=== PATIENT | female | born 1970 | race Caucasian/White ===

== ENCOUNTER 2020-10-27 22:06 | Emergency (ER) | payer MEDICAID ==
[~2020-10-27] VITALS: Ht 170.2 cm; Wt 86.9 kg
--- NOTE | 2020-10-27 22:29 | NUR ---
seen by , code stroke called out
[2020-10-27] MEDS ORDERED: CLONIDINE HCL 0.2 MG TABLET PO ONE (22:30)
--- NOTE | 2020-10-27 22:30 | NUR ---
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
--- NOTE | 2020-10-27 22:33 | NUR ---
taken to ct scan of the head accompanied by nurse and daughter
[2020-10-27 22:39] LABS: BASOPHILS # (AUTO) 0.1 K/uL (0.0-8.0); BASOPHILS % (AUTO) 1.2 % (0.0-2.0); EOSINOPHILS # (AUTO) 0.1 K/uL (0.0-0.7); EOSINOPHILS % (AUTO) 1.2 % (0.0-7.0); HEMATOCRIT 40.1 % (31.2-41.9); HEMOGLOBIN 13.5 g/dL (10.9-14.3); LYMPHOCYTES # (AUTO) 2.5 K/uL (20.0-40.0); LYMPHOCYTES % (AUTO) 40.8 % (20.5-51.5); MEAN CORPUSCULAR HEMOGLOBIN 29.2 uug (24.7-32.8); MEAN CORPUSCULAR HGB CONC 34 g/dL (32.3-35.6); MONOCYTES # (AUTO) 0.6 K/uL (2.0-10.0); MONOCYTES % (AUTO) 9.3 % (0.0-11.0); NEUTROPHILS # (AUTO) 2.9 K/uL (1.8-8.9); NEUTROPHILS % (AUTO) 47.5 % (38.5-71.5); PLATELET COUNT (AUTO) 250 K/uL (179-408); RED BLOOD CELL COUNT(AUTO) 4.61 MIL/uL (3.63-4.92)
--- NOTE | 2020-10-27 22:45 | NUR ---
back from ct scan , accompanied by nurse and daughter , kayy elizabeth athis time , clonidine 0.2 mg , orally given
[2020-10-27 22:47] LABS: CREATININE 0.7 mg/dL (0.6-1.3); POTASSIUM 3.9 mmol/L (3.5-5.1)
[2020-10-27] MEDS ORDERED: CLONIDINE HCL 0.2 MG TABLET ONE (22:52)
--- NOTE | 2020-10-27 23:00 | NUR ---
dr mandujano neurologist seen and talked to the patient , nurse ans daughter at bedside
--- NOTE | 2020-10-27 23:18 | NUR ---
dr nazia conleylogist talked to dr hi regarding plans and traetment
--- NOTE | 2020-10-27 23:19 | NUR ---
dr hi at bedside regarding medications and plans
[2020-10-27] MEDS ORDERED: ONDANSETRON 4 MG/2 ML VIAL ONE (23:27)
[2020-10-27] MEDS ORDERED: HYDROMORPHONE 1 MG/1 ML DISP.SYRIN ONE (23:29)
[2020-10-27] MEDS ORDERED: ONDANSETRON 4 MG/2 ML VIAL IV ONE (23:30)
[2020-10-27] MEDS ORDERED: HYDROMORPHONE 1 MG/1 ML DISP.SYRIN IV ONE (23:30)
[2020-10-27] MEDS ORDERED: LOSA25TA27 PO (23:34)
[2020-10-27] MEDS ORDERED: LABETALOL HCL 100 MG/20 ML VIAL ONE (23:42)
[2020-10-27] MEDS ORDERED: LABETALOL HCL 100 MG/20 ML VIAL IV ONE (23:45)
--- NOTE | 2020-10-28 | NUR ---
PATIENT DEPARTED WITH DAUGHTER WHO IS GOING TO DRIVE HOME , PATIENT HAS A STEADY GAIT , BP IS MORE STABLE AFTER LABETALOL, BP 143/ 99 . HR 69 , DENIES DISTRESS
[2020-10-28 00:09] VITALS: BP 143/98
== END 2020-10-28 00:01 | disposition home or self-care (01) ==
LOC: ER 22:07
DX: I10 Essential (primary) hypertension (principal); R51.9 Headache, unspecified; Z20.822 Contact with and (suspected) exposure to COVID-19; R94.31 Abnormal electrocardiogram [ECG] [EKG]
CPT/HCPCS: 36415; 70450; 71045; 80048; 80061; 82962; 84484; 85025; 85730; 87426; 93005; 96374; 96375; 99285; J1170; J2405; J3490; U0003; 70030-TC; A4663

== ENCOUNTER 2022-06-03 08:15 | Emergency (ER) | payer MEDICAID ==
[~2022-06-03] VITALS: Ht 162.6 cm; Wt 86.2 kg
[~2022-06-03 08:15] MED LIST: LOSA25TA27 PO
[2022-06-03] MEDS ORDERED: KETOROLAC TROMETHAMINE 15 MG INJ IVP ONE (08:45)
[2022-06-03 08:46] LABS: HEMATOCRIT 37.1 % (31.2-41.9); MEAN CORPUSCULAR HEMOGLOBIN 30.5 uug (24.7-32.8); MEAN CORPUSCULAR VOLUME 86.8 fL (75.5-95.3); PLATELET COUNT (AUTO) 212 K/uL (179-408)
[2022-06-03 08:57] LABS: CREATININE 0.9 mg/dL (0.6-1.3); POTASSIUM 3.6 mmol/L (3.5-5.1)
[2022-06-03 09:03] LABS: BILIRUBIN,DIRECT 0.1 mg/dL (0.0-0.2); BILIRUBIN,TOTAL 0.2 mg/dL (0.2-1.0); TOTAL PROTEIN, SERUM 7.3 g/dL (6.4-8.2)
[2022-06-03] MEDS ORDERED: KETOROLAC TROMETHAMINE 15 MG INJ ONE (09:45)
[2022-06-03 09:50] LABS: *BILIRUBIN,URIN NEGATIVE (NEGATIVE); *CLARITY,URINE CLEAR (CLEAR); *COLOR,URINE YELLOW (YELLOW); *KETONES,URINE NEGATIVE (NEGATIVE); *UROBILINOGEN,URINE 0.2 E.U./dl (NORMAL); LEUKOCYTE ESTERASE ,URINE NEGATIVE (NEGATIVE); NITRITE, URINE NEGATIVE (NEGATIVE); UGLUCOSE NEGATIVE (NEGATIVE)
[2022-06-03 09:56] LABS: *BLOOD, URINE TRACE (NEGATIVE)
[2022-06-03 10:05] LABS: *URINE HCG, QUAL NEG (NEGATIVE)
--- NOTE | 2022-06-03 10:15 | NUR ---
Pt. walked to the ER c/o abdominal 9/10 pain since 2 weeks ago, pt reports abdominal pain worsened last night. No nausea, no vomiting. MD evaluated patient at bedside
[2022-06-03] MEDS ORDERED: KETOROLAC TROMETHAMINE 15 MG INJ IM ONE (10:30)
--- NOTE | 2022-06-03 10:31 | NUR ---
Pt. discharged to home in stable condition. Written and verbal after care instructions given. Patient verbalizes understanding of instructions. Stressed follow up or return to ER for worsening s/s.
[2022-06-03 10:39] VITALS: BP 131/75
[2022-06-03 11:23] LABS: BACTERIA,URINE FEW /HPF (NONE SEEN); RBC,URINE NONE SEEN /HPF (0-3); SQUAMOUS EPITHELIAL CELL,UR MODERATE /HPF (NONE SEEN); WBC,URINE NONE SEEN /HPF (0-3)
== END 2022-06-03 10:40 | disposition home or self-care (01) ==
LOC: ER 08:17
DX: R10.30 Lower abdominal pain, unspecified (principal); I10 Essential (primary) hypertension; K76.0 Fatty (change of) liver, not elsewhere classified; N80.9 Endometriosis, unspecified
CPT/HCPCS: 99284; 74176; 80076; 80048; 81001; 84703; 83690; 85025; 36415; 96372; J1885; A4663